=== PATIENT | male | born 1960 | race Caucasian/White ===

== ENCOUNTER → 2016-09-21 | Outpatient (REF) | payer BC | LOC: M SFHCPLAZ 13:45 | PROVIDERS: ATTEND Family Medicine | DX: E03.9 Hypothyroidism, unspecified (principal) ==

== ENCOUNTER → 2016-11-25 | Outpatient (REF) | payer OTHER | LOC: M SFHCPLAZ 11:35 | PROVIDERS: ATTEND Family Medicine | DX: E03.9 Hypothyroidism, unspecified (principal) ==

== ENCOUNTER → 2017-02-26 | Outpatient (REF) | payer OTHER ==
[2017-02-26 13:39] LABS: FREE T4 1.02 NG/DL (0.76-1.46)
[2017-02-26 18:02] LABS: THYROID PEROXIDASE ANTIBODY 1286.3 U/ML (<60.0)
== END ==
LOC: M SFHCPLAZ 09:38
PROVIDERS: ATTEND Family Medicine
DX: E03.9 Hypothyroidism, unspecified (principal)

== ENCOUNTER → 2017-06-29 | Outpatient (REF) | payer OTHER ==
[2017-06-29 13:04] LABS: FREE T4 1.11 NG/DL (0.76-1.46); THYROID STIMULATING HORMONE 0.266 uIU/ML (0.358-3.740)
[2017-07-01 03:56] LABS: CHOLESTEROL LEVEL 171 MG/DL (<200); CHOLESTEROL RISK RATIO 3.638 (<5); HDL CHOLESTEROL 47 MG/DL (>40); LDL CHOLESTEROL 99.2 MG/DL (<100); NON-HDL-C 124 MG/DL; TRIGLYCERIDES LEVEL 124 MG/DL (<150)
== END ==
LOC: M SFHCPLAZ 10:05
DX: E03.9 Hypothyroidism, unspecified (principal)

== ENCOUNTER 2018-05-23 12:56 | Emergency (ER) | payer SELFPAY, OTHER | END 2018-05-23 14:53 | disposition left against medical advice (07) | LOC: M ED 12:56 | DX: Z53.29 Procedure and treatment not carried out because of patient's decision for other reasons (principal) ==

== ENCOUNTER → 2018-06-03 | Outpatient (REF) | payer BC ==
[2018-06-03 12:07] LABS: BASO % 0.5 % (0.0-1.0); EOS # 0.2 10^3/uL (0.0-0.50); EOS % 2.4 % (0.0-3.0); HEMATOCRIT 44.1 % (42.0-52.0); HEMOGLOBIN 15.3 g/dl (13.5-17.5); IMMATURE GRANULOCYTE % 0.8 % (0-3.0); LYMPH # 2.3 10^3/uL (1.5-4.5); LYMPH % 28.4 % (24.0-44.0); MEAN CORPUSCULAR HEMOGLOBIN 32.4 pg (27.0-33.0); MEAN CORPUSCULAR HGB CONC 34.7 g/dl (32.0-36.5); MEAN CORPUSCULAR VOLUME 93.4 fl (80.0-96.0); MONO # 0.6 10^3/uL (0.0-0.8); MONO % 7.5 % (0.0-5.0); NEUTROPHILS # 4.8 10^3/uL (1.8-7.7); NEUTROPHILS % 60.4 % (36.0-66.0); PLATELET COUNT, AUTOMATED 267 10^3/uL (150-450); RED BLOOD COUNT 4.72 10^6/uL (4.30-6.10); RED CELL DISTRIBUTION WIDTH 11.7 % (11.5-14.5)
[2018-06-03 12:49] LABS: ALBUMIN 4.6 GM/DL (3.2-5.2); ALBUMIN/GLOBULIN RATIO 1.48 (1.00-1.93); ALKALINE PHOSPHATASE 72 U/L (45-117); ALT/SGPT 25 U/L (12-78); ANION GAP 6 MEQ/L (8-16); AST/SGOT 16 U/L (7-37); BILIRUBIN,DIRECT 0.2 MG/DL (0.0-0.2); BILIRUBIN,TOTAL 0.7 MG/DL (0.2-1.0); BLOOD UREA NITROGEN 19 MG/DL (7-18); CALCIUM LEVEL 9.5 MG/DL (8.5-10.1); CARBON DIOXIDE LEVEL 30 MEQ/L (21-32); CHLORIDE LEVEL 100 MEQ/L (98-107); CHOLESTEROL LEVEL 173 MG/DL (<200); CREATININE FOR GFR 1.02 MG/DL (0.70-1.30); GLOMERULAR FILTRATION RATE > 60.0 (>56); GLUCOSE, FASTING 96 MG/DL (70-100); HDL CHOLESTEROL 49 MG/DL (>40); LDL CHOLESTEROL 103 MG/DL (<100); NON-HDL-C 124 MG/DL; POTASSIUM SERUM 4.4 MEQ/L (3.5-5.1); SODIUM LEVEL 136 MEQ/L (136-145); TOTAL 25(OH) VITAMIN D 28.1 NG/ML (30.0-100.0); TOTAL PROTEIN 7.7 GM/DL (6.4-8.2); TRIGLYCERIDES LEVEL 106 MG/DL (<150)
[2018-06-03 13:39] LABS: CREATININE, URINE 54.8 MG/DL; MALB URINE SIEMENS 22.7 MG/L; MAU/CREAT RATIO 41.4 MCG/MG (0.0-30.0)
== END ==
LOC: M SFHCPLAZ 08:26
DX: R10.32 Left lower quadrant pain (principal); E78.2 Mixed hyperlipidemia; E03.9 Hypothyroidism, unspecified; Z51.81 Encounter for therapeutic drug level monitoring; I10 Essential (primary) hypertension; E55.9 Vitamin D deficiency, unspecified
CPT/HCPCS: 82248

== ENCOUNTER → 2018-07-28 | Outpatient (CLI) | payer BC ==
[~2018-07-28] MED LIST: ENAL10TA2; LEVO150T7
[2018-07-28 10:23] LABS: FREE T4 0.84 NG/DL (0.76-1.46); THYROID STIMULATING HORMONE 0.808 uIU/ML (0.358-3.740)
== END ==
LOC: M LAB 08:40
PROVIDERS: ATTEND Physician Assistant
DX: E03.9 Hypothyroidism, unspecified (principal)

== ENCOUNTER → 2019-02-01 | Outpatient (REF) | payer BC | LOC: M SFHCPLAZ 10:14 | PROVIDERS: ATTEND Family Medicine | DX: E83.42 Hypomagnesemia (principal); I10 Essential (primary) hypertension; E03.9 Hypothyroidism, unspecified ==

== ENCOUNTER → 2019-02-23 | Outpatient (CLI) | payer BC ==
[2019-02-23 11:21] LABS: BLOOD UREA NITROGEN 22 MG/DL (7-18); CALCIUM LEVEL 9.7 MG/DL (8.5-10.1); CARBON DIOXIDE LEVEL 30 MEQ/L (21-32); CHLORIDE LEVEL 106 MEQ/L (98-107); CREATININE FOR GFR 1.01 MG/DL (0.70-1.30); FREE T4 1.02 NG/DL (0.76-1.46); GLOMERULAR FILTRATION RATE > 60.0 (>56); GLUCOSE, FASTING 91 MG/DL (70-100); MAGNESIUM LEVEL 2.3 MG/DL (1.8-2.4); POTASSIUM SERUM 4.9 MEQ/L (3.5-5.1); SODIUM LEVEL 142 MEQ/L (136-145); THYROID STIMULATING HORMONE 0.181 uIU/ML (0.358-3.740)
== END ==
LOC: M LAB 09:54
PROVIDERS: ATTEND Family Medicine
DX: E03.9 Hypothyroidism, unspecified (principal)

== ENCOUNTER → 2019-07-03 | Outpatient (CLI) | payer BC ==
[2019-07-03 16:39] LABS: FREE T4 1.03 NG/DL (0.76-1.46); THYROID STIMULATING HORMONE 0.169 uIU/ML (0.358-3.740)
== END ==
LOC: M LAB 15:27
PROVIDERS: ATTEND Family Medicine
DX: E03.9 Hypothyroidism, unspecified (principal)

== ENCOUNTER → 2020-02-10 | Outpatient (CLI) | payer BC ==
[~2020-02-10] MED LIST changes: +ENAL-36; -ENAL10TA2
[2020-02-10 12:16] LABS: BASO # 0.1 10^3/uL (0.0-0.2); BASO % 0.9 % (0.0-1.0); EOS # 0.3 10^3/uL (0.0-0.5); EOS % 4.6 % (0.0-3.0); HEMATOCRIT 45.2 % (42.0-52.0); HEMOGLOBIN 15.7 g/dl (13.5-17.5); LYMPH # 1.6 10^3/uL (1.5-5.0); LYMPH % 27.5 % (24.0-44.0); MEAN CORPUSCULAR HEMOGLOBIN 33.3 pg (27.0-33.0); MEAN CORPUSCULAR HGB CONC 34.7 g/dl (32.0-36.5); MEAN CORPUSCULAR VOLUME 95.8 fl (80.0-96.0); MONO # 0.5 10^3/uL (0.0-0.8); MONO % 9.1 % (0.0-5.0); NEUTROPHILS # 3.3 10^3/uL (1.5-8.5); NEUTROPHILS % 57.5 % (36.0-66.0); PLATELET COUNT, AUTOMATED 231 10^3/uL (150-450); RED BLOOD COUNT 4.72 10^6/uL (4.30-6.10); WHITE BLOOD COUNT 5.7 10^3/uL (4.0-10.0)
[2020-02-12 04:12] LABS: ALBUMIN 4.2 GM/DL (3.2-5.2); ALT/SGPT 27 U/L (12-78); BILIRUBIN,TOTAL 0.4 MG/DL (0.2-1.0); BLOOD UREA NITROGEN 20 MG/DL (7-18); CALCIUM LEVEL 9.5 MG/DL (8.5-10.1); CARBON DIOXIDE LEVEL 31 MEQ/L (21-32); CHLORIDE LEVEL 105 MEQ/L (98-107); CHOLESTEROL LEVEL 191 MG/DL (<200); CREATININE FOR GFR 0.97 MG/DL (0.70-1.30); FREE T4 0.89 NG/DL (0.76-1.46); GLOMERULAR FILTRATION RATE > 60.0 (>56); GLUCOSE, FASTING 102 MG/DL (70-100); HDL CHOLESTEROL 57 MG/DL (>40); LDL CHOLESTEROL 117 MG/DL (<100); NON-HDL-C 134 MG/DL; POTASSIUM SERUM 4.5 MEQ/L (3.5-5.1); SODIUM LEVEL 138 MEQ/L (136-145); THYROID STIMULATING HORMONE 0.221 uIU/ML (0.358-3.740); TOTAL PROTEIN 7.6 GM/DL (6.4-8.2); TRIGLYCERIDES LEVEL 87 MG/DL (<150)
== END ==
LOC: M LAB 10:50
PROVIDERS: ATTEND Nurse Practitioner Family
DX: E03.9 Hypothyroidism, unspecified (principal); J30.9 Allergic rhinitis, unspecified; Z12.5 Encounter for screening for malignant neoplasm of prostate
CPT/HCPCS: 80053; 80061; 84439; 84443; 85025; G0103

== ENCOUNTER → 2020-12-06 | Outpatient (REF) | payer BC ==
[2020-12-06 18:54] LABS: BASO # 0.1 10^3/uL (0.0-0.2); BASO % 0.9 % (0.0-1.0); EOS # 0.2 10^3/uL (0.0-0.5); EOS % 2.8 % (0.0-3.0); HEMATOCRIT 44.4 % (42.0-52.0); HEMOGLOBIN 15.4 g/dl (13.5-17.5); LYMPH # 1.9 10^3/uL (1.5-5.0); LYMPH % 29.9 % (24.0-44.0); MEAN CORPUSCULAR HEMOGLOBIN 32.8 pg (27.0-33.0); MEAN CORPUSCULAR HGB CONC 34.7 g/dl (32.0-36.5); MEAN CORPUSCULAR VOLUME 94.7 fl (80.0-96.0); MONO # 0.7 10^3/uL (0.0-0.8); MONO % 10.3 % (2.0-8.0); NEUTROPHILS # 3.6 10^3/uL (1.5-8.5); NEUTROPHILS % 55.8 % (36.0-66.0); PLATELET COUNT, AUTOMATED 248 10^3/uL (150-450); RED BLOOD COUNT 4.69 10^6/uL (4.30-6.10); WHITE BLOOD COUNT 6.4 10^3/uL (4.0-10.0)
[2020-12-06 19:13] LABS: HEMOGLOBIN A1c 5.2 %
[2020-12-06 19:34] LABS: ALBUMIN 4.2 GM/DL (3.2-5.2); ALT/SGPT 27 U/L (12-78); BILIRUBIN,TOTAL 0.5 MG/DL (0.2-1.0); BLOOD UREA NITROGEN 20 MG/DL (7-18); CALCIUM LEVEL 9.8 MG/DL (8.5-10.1); CARBON DIOXIDE LEVEL 30 MEQ/L (21-32); CHLORIDE LEVEL 105 MEQ/L (98-107); CHOLESTEROL LEVEL 188 MG/DL (<200); CHOLESTEROL RISK RATIO 4.272 (<5); CREATININE FOR GFR 0.93 MG/DL (0.70-1.30); FREE T4 0.97 NG/DL (0.76-1.46); GLOMERULAR FILTRATION RATE > 60.0 (>56); GLUCOSE, FASTING 70 MG/DL (70-100); HDL CHOLESTEROL 44 MG/DL (>40); LDL CHOLESTEROL 110 MG/DL (<100); NON-HDL-C 144 MG/DL; POTASSIUM SERUM 5.1 MEQ/L (3.5-5.1); SODIUM LEVEL 138 MEQ/L (136-145); THYROID STIMULATING HORMONE 0.722 uIU/ML (0.358-3.740); TOTAL PROTEIN 7.5 GM/DL (6.4-8.2); TRIGLYCERIDES LEVEL 172 MG/DL (<150)
== END ==
LOC: M SFHCPLAZ 15:04
PROVIDERS: ATTEND Nurse Practitioner Family
DX: J30.9 Allergic rhinitis, unspecified (principal); E03.9 Hypothyroidism, unspecified; Z12.5 Encounter for screening for malignant neoplasm of prostate; Z13.1 Encounter for screening for diabetes mellitus
CPT/HCPCS: 36415; 80053; 80061; 83036; 84439; 84443; 85025; G0103

== ENCOUNTER → 2021-05-17 | Outpatient (CLI) | payer BC ==
[~2021-05-17] MED LIST changes: -ENAL-36; +ENAL-36 PO; +FEXO-13 PO; +LEVO137T2 PO; +MONT10TA10 PO
== END ==
LOC: M LABSMTC 10:35
PROVIDERS: ATTEND Anesthesiology
DX: Z01.812 Encounter for preprocedural laboratory examination (principal); Z11.52 Encounter for screening for COVID-19

== ENCOUNTER 2021-05-22 08:48 | Day surgery (SDC) | payer BC ==
[~2021-05-22] VITALS: Ht 182.9 cm; Wt 83.0 kg
[~2021-05-22 08:48] MED LIST changes: +NS 1,000 ML IV ONE
--- OUTSIDE RECORDS SUMMARY | 2021-05-22 08:53 | CCD ---
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 Active confirmed 23 4267889 Problem Hypomagnesemia E83.42 Active confirmed 59811 5004 Problem Lumbago with sciatica, right side M54.41 Active confirmed 945060239 Problem Reactive airway disease, unspecified asthma hubert rity, uncomplicated J45.909 Active confirmed 311956659112 Problem Acquired hypothyroidism E03.9 Active confirmed 037172489 Problem Essential hypertension I10 Active confirmed 63480562 Problem Lumbago with sciatica, left side M54.42 Active confirmed 535633630 Problem Allergic rhinitis J30.9 Active confirmed 61 130577 Problem Hypothyroidism (acquired) E03.9 Active confirmed 136974560 Problem Mixed hyperlipidemia E78.2 Active confirmed 959495667 Problem HTN, goal below 130/80 I10 Active confirmed 26234980 Problem Chronic allergic rhinitis J30.9 Active confirmed 38432534 Problem Vitamin D deficiency E55.9 Active confirmed 26484968 ALLERGIES No Known Allergies ENCOUNTERS from 1960 to 2021-03-14 Encounter Location Date Provider Diagnosis [address] [phone] [place] [address] Feb, Marialuisa Pappas IMMUNIZATIONS Vaccine Route Administration Date Status TDAP 0.5mL (Boostrix) Unknown Jul 08, 2016 Administer ed Influenza 6mo & up Fluzone Unknown Apr 06, 2016 Other s SOCIAL HISTORY Tobacco Use: Social History Observation Description Date Details (start date - stop date) Never Smoker Sex Assigned At : Social History Observation Description Sex Assigned At Unknown Education: Question Answer Notes Level of Education: High School Audit Question Answer Notes Total Score: 9 Interpretation: Simple Advice Language: Question Answer Notes Languages spoken: Malay Yazidism: Question Answer Notes Yazidism 33 None Sexual Hx: Question Answer Notes Had sex in the last 12 months (vaginal, oral, or anal)? Yes with Women only Drug and Alcohol Question Answer Notes Total Score: 2 Interpretation: Low level Alcohol Screening: Question Answer Notes Did you have a drink containing alcohol in the past year? Ye s Points 4 Interpretation Positive How often did you have six or more drinks on one occas ion in the past year? Never (0 points) How many drinks did you have on a typica l day when you were drinking in the past year? 1 or 2 (0 points) How often did you have a drink containing alcohol in t he past year? Four or more times a week (4 points) BMI Care Goal Follow-Up Question Answer Notes Above Normal BMI Follow-Up Lifestyle education regarding t Tobacco Use: Question Answer Notes Are you a: never smoker never smoker REASON FOR REFERRAL No Information VITAL SIGNS No information MEDICATIONS Medication SIG (Take, Route, Frequency, Duration) Notes Start Da te End Date Status Ipratropium [place] 0.03 % 2 sprays in each nostril Na betty Twice a day a needed for 30 day(s) Active Vitamin D 125 MCG (5000 UT) 1 capsule Orally Once a day Active Enalapril Maleate 10 MG 1 tablet Orally Once a day for 90 Active Zinc 50 MG 1 tablet Orally Once a day for 30 day(s) Active Singulair 10 MG 1 tablet Orally Once a day for 30 day(s) 1 Feb, Active Levothyroxine Sodium 137 MCG 1 tablet on an empty stom ach in the morning Orally Once a day for 30 Days Active Selenium 200 MCG 1 tablet Orally Once a day for 30 day(s) Active Fexofenadine HCl 180 MG 1 tablet Orally Once a day for 30 day(s) Nov, Active PROCEDURES No Information RESULTS No Results REASON FOR VISIT right ear infection? MEDICAL (GENERAL) HISTORY Type Description Date Medical History Hypothyroidism Medical History Lipid panel performed 06/02, ASCVD risk is 5.3%. A statin is not indicated at this time. F/u lipid in 2016 Medical History Colonoscopy 08/2009 nL f/u in 2019 Medical History Hypertension Medical History Environmental Allergies Medical History Alcohol abuse Medical History Second hand smoke exposure Medical History Marijuana use Surgical History hernia repair Surgical History appendectomy Surgical History Hemorrhoidectomy Surgical History Rubber Band LIgation 09/2009 Surgical History Colonoscopy 08/2009 Hospitalization History Hospitalization for surgies only Goals Section No Information Health Concerns No Information MEDICAL EQUIPMENT No Information MENTAL STATUS No Information FUNCTIONAL STATUS No Information ASSESSMENTS No Information PLAN OF TREATMENT Medication Medication Name Sig Start Date Stop Date Ipratropium [place] 0.03 % 2 sprays in each nostril Na betty Twice a day a needed for 30 day(s) Levothyroxine Sodium 137 MCG 1 tablet on an empty stom ach in the morning Orally Once a day for 30 Days Enalapril Maleate 10 MG 1 tablet Orally Once a day for 90 Singulair 10 MG 1 tablet Orally Once a day for 30 day(s) Feb, Fexofenadine HCl 180 MG 1 tablet Orally Once a day for 30 day(s) Nov, Next Appt Details Provider Name:Marialuisaeli Pappas, 03-17 01:30:00 PM, [address] [place] [address] , [place], [address], Provider Name:Marialuisaeli Pappas, 2020-06 02:30:00 PM, [address] [place] [address] , [place], [address], Insurance Providers Payer Name Payer Address Payer Phone Insured Name Patient Relati onship to Insured Coverage Start Date Coverage End Date BCBS OF [facility] [phone] [facility] [id number] SINDHU SPARKS
--- OUTSIDE RECORDS SUMMARY | 2021-05-22 08:53 | CCD ---
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 Active confirmed 23 2758112 Problem Hypomagnesemia E83.42 Active confirmed 33409 5004 Problem Lumbago with sciatica, right side M54.41 Active confirmed 378522299 Problem Reactive airway disease, unspecified asthma hubert rity, uncomplicated J45.909 Active confirmed 491644339825 Problem Acquired hypothyroidism E03.9 Active confirmed 936481606 Problem Essential hypertension I10 Active confirmed 16215259 Problem Lumbago with sciatica, left side M54.42 Active confirmed 725799585 Problem Allergic rhinitis J30.9 Active confirmed 61 263180 Problem Hypothyroidism (acquired) E03.9 Active confirmed 994715194 Problem Mixed hyperlipidemia E78.2 Active confirmed 178481503 Problem HTN, goal below 130/80 I10 Active confirmed 85756644 Problem Chronic allergic rhinitis J30.9 Active confirmed 32986822 Problem Vitamin D deficiency E55.9 Active confirmed 68809460 ALLERGIES No Known Allergies ENCOUNTERS from 1960 to 2021-03-19 Encounter Location Date Provider Diagnosis [address] [phone] [place] [address] Feb, Marialuisa Pappas Allergic rhinitis J30.9 and Acute effusion of right ear H65.191 IMMUNIZATIONS Vaccine Route Administration Date Status TDAP [...] Advice Language: Question Answer Notes Languages spoken: Honduran Cheondoism: Question Answer Notes Cheondoism 33 None Sexual Hx: Question Answer Notes [...] REASON FOR REFERRAL No Information VITAL SIGNS Weight 184.12 lbs Feb, Weight-kg 83.52 kg Feb, Height 72 in Feb, BMI 24.97 kg/m2 Feb, Heart Rate 82 /min Feb, Respiratory Rate 18 /min Feb, Temperature 97.8 degrees Fahrenheit Feb, Oximetry 98% Feb, Blood pressure systolic 130 mm Hg Feb, Blood pressure diastolic 70 mm Hg Feb, MEDICATIONS Medication SIG (Take, Route, Frequency, Duration) Notes Start Da te End Date Status Enalapril Maleate 10 MG 1 tablet Orally Once a day for 90 Active Zinc 50 MG 1 tablet Orally Once a day for 30 day(s) Active Amoxicillin-Pot Clavulanate 875-125 MG 1 tablet Orally every 12 hrs for 10 day(s) Feb, Active Singulair 10 MG 1 tablet Orally Once a day for 30 day(s) 1 7 Feb, 2021 Active Vitamin D 125 MCG (5000 UT) 1 capsule Orally Once a day Active Levothyroxine Sodium 137 MCG 1 tablet on an empty stom ach in the morning Orally Once a day for 30 Days Active Ipratropium [place] 0.03 % 2 sprays in each nostril Na betty Twice a day a needed for 30 day(s) Active Fexofenadine HCl 180 MG 1 tablet Orally Once a day for 30 day(s) Nov, Active Selenium 200 MCG 1 tablet Orally Once a day for 30 day(s) Active PROCEDURES No Information RESULTS No Results REASON FOR VISIT ear feels tender MEDICAL (GENERAL) HISTORY Type Description Date Medical [...] No Information FUNCTIONAL STATUS No Information ASSESSMENTS Encounter Date Diagnosis Assessment Notes Treatment Notes Treatm ent Clinical Notes Feb, Allergic rhinitis (ICD-10 - J30.9) chronic ongoing given not controlled with steroid/antihistame continue Anticholenergic Feb, Acute effusion of right ear (ICD-10 - H65.191) Empiric coverage with abx for 10days PLAN OF TREATMENT Medication Medication Name Sig Start Date Stop Date Amoxicillin-Pot Clavulanate 875-125 MG 1 tablet Orally every 12 hrs for 10 day(s) Feb, Ipratropium [place] 0.03 % 2 sprays in each nostril Na betty Twice a day a needed for 30 day(s) Treatment Notes Assessment Notes Clinical Notes Allergic rhinitis chronic ongoing giv en not controlled with steroid/antihistamecontinue Anticholenergic Acute effusion of right ear Empiric cove rage with abx for 10days Next Appt Details Reason: Provider Name:Marialuisa Pappas, 2020-- 02:30:00 PM, [address] [facility], , [place], [address], Insurance Providers Payer Name Payer Address Payer Phone Insured Name Patient Relati onship to Insured Coverage Start Date Coverage End Date [employer] OF [place] [employer] [phone] [place] [id number] SINDHU SPARKS self
--- OUTSIDE RECORDS SUMMARY | 2021-05-22 08:53 | CCD ---
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 Active confirmed 23 5218344 Problem Hypomagnesemia E83.42 Active confirmed 05006 5004 Problem Lumbago with sciatica, right side M54.41 Active confirmed 039850158 Problem Reactive airway disease, unspecified asthma hubert rity, uncomplicated J45.909 Active confirmed 846994460824 Problem Acquired hypothyroidism E03.9 Active confirmed 962535748 Problem Essential hypertension I10 Active confirmed 92622311 Problem Lumbago with sciatica, left side M54.42 Active confirmed 229960253 Problem Allergic rhinitis J30.9 Active confirmed 61 949697 Problem Hypothyroidism (acquired) E03.9 Active confirmed 363624091 Problem Mixed hyperlipidemia E78.2 Active confirmed 831161208 Problem HTN, goal below 130/80 I10 Active confirmed 63378202 Problem Chronic allergic rhinitis J30.9 Active confirmed 46500495 Problem Vitamin D deficiency E55.9 Active confirmed 96257749 ALLERGIES No Known Allergies ENCOUNTERS from 1960 to 2021-03-07 Encounter Location Date Provider Diagnosis [address] [phone] [place] [address] Feb, Marialuisa Pappas Hypothyroidism E03.9 and All ergic rhinitis J30.9 IMMUNIZATIONS Vaccine Route Administration Date Status TDAP [...] Advice Language: Question Answer Notes Languages spoken: French Rastafarian: Question Answer Notes Rastafarian 33 None Sexual Hx: Question Answer Notes [...] Start Da te End Date Status Ipratropium [place] 0.03 % 2 sprays in each nostril [...] Once a day for 30 day(s) Feb, Active Levothyroxine Sodium 137 MCG 1 tablet on an empty stom ach in the morning Orally Once a day for 30 Days Active Selenium 200 MCG 1 tablet Orally Once a day for 30 day(s) Active Fexofenadine HCl 180 MG 1 tablet Orally Once a day for 30 day(s) Nov, Active PROCEDURES No Information RESULTS No Results REASON FOR VISIT New Refill Request MEDICAL (GENERAL) HISTORY Type Description Date Medical [...] Treatment Notes Treatm ent Clinical Notes Feb, Hypothyroidism (ICD-10 - E03.9) Feb, Allergic rhinitis (ICD-10 - J30.9) PLAN OF TREATMENT Medication Medication Name Sig Start Date Stop Date Ipratropium [place] 0.03 % 2 sprays in each nostril [...] 30 day(s) Nov, Next Appt Details Provider Name:Marialuisa Guillaumeozzy, 2020- 02:30:00 PM, [address] [facility], , [place], [address], Insurance Providers Payer Name Payer Address Payer Phone Insured Name Patient Relati onship to Insured Coverage Start Date Coverage End Date BCBS OF [facility] [phone] [facility] [id number] SINDHU SPARKS
--- OUTSIDE RECORDS SUMMARY | 2021-05-22 08:53 | CCD ---
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 Active confirmed 23 1941470 Problem Hypomagnesemia E83.42 Active confirmed 58393 5004 Problem Lumbago with sciatica, right side M54.41 Active confirmed 206593492 Problem Reactive airway disease, unspecified asthma hubert rity, uncomplicated J45.909 Active confirmed 818192911162 Problem Acquired hypothyroidism E03.9 Active confirmed 762570741 Problem Essential hypertension I10 Active confirmed 41368613 Problem Lumbago with sciatica, left side M54.42 Active confirmed 723723580 Problem Allergic rhinitis J30.9 Active confirmed 61 218442 Problem Hypothyroidism (acquired) E03.9 Active confirmed 026814327 Problem Mixed hyperlipidemia E78.2 Active confirmed 311166695 Problem HTN, goal below 130/80 I10 Active confirmed 31495705 Problem Chronic allergic rhinitis J30.9 Active confirmed 78079215 Problem Vitamin D deficiency E55.9 Active confirmed 38611867 ALLERGIES No Known Allergies ENCOUNTERS from 1960 to 2021-03-07 Encounter Location Date Provider Diagnosis [address] [phone] [place] [address] 15 Feb, 2021 Marialuisa Pappas Hypothyroidism E03.9 and [place] ctive airway disease, unspecified asthma severity, uncomplicated J45.909 IMMUNIZATIONS Vaccine Route Administration Date Status TDAP [...] Advice Language: Question Answer Notes Languages spoken: Mohawk Gnosticism: Question Answer Notes Gnosticism 33 None Sexual Hx: Question Answer Notes [...] Start Da te End Date Status Ipratropium [place] 0.03 % 2 sprays in each nostril [...] 30 day(s) 1 7 Feb, 2021 Active Levothyroxine Sodium 137 MCG 1 tablet on an empty stom ach in the morning Orally Once a day for 30 Days Active Selenium 200 MCG 1 tablet Orally Once a day for 30 day(s) Active Fexofenadine HCl 180 MG 1 tablet Orally Once a day for 30 day(s) Nov, Active PROCEDURES No Information RESULTS No Results REASON FOR VISIT refill MEDICAL (GENERAL) HISTORY Type Description Date Medical [...] Notes Feb, Hypothyroidism (ICD-10 - E03.9) Feb, Reactive airway disease, uns pecified asthma severity, uncomplicated (ICD-10 - J45.909) PLAN OF TREATMENT Medication Medication Name Sig Start Date Stop Date Ipratropium [place] 0.03 % 2 sprays in each nostril [...] Next Appt Details Provider Name:Marialuisa Guillaumeozzy, 2020- 0 02:30:00 PM, [address] [facility], , [place], [address], Insurance Providers Payer Name Payer Address Payer Phone Insured Name Patient Relati onship to Insured Coverage Start Date Coverage End Date [employer] OF [place] [employer] [id number] [facility] [id number] SINDHU SPARKS
--- OUTSIDE RECORDS SUMMARY | 2021-05-22 08:53 | CCD ---
Author Author [facility] Organization [facility] Address Unknown Phone Unavailable Care Team Providers Care Patient Financial Specialist Name Role Phone Charlebois, A Dianna RPA C Unavailable Unavailable Charlebois, A Dianna RPA C Unavailable Unavailable Charlebois, A Dianna RPA C Unavailable Unavailable Charlebois, A Dianna RPA C Unavailable Unavailable Charlebois, A Dianna RPA C Unavailable Unavailable Charlebois, A Dianna RPA C Unavailable Unavailable Charlebois, A Dianna RPA C Unavailable Unavailable Charlebois, A Dianna RPA C Unavailable Unavailable Charlebois, A Dianna RPA C Unavailable Unavailable Charlebois, A Dianna RPA C Unavailable Unavailable Charlebois, A Dianna RPA C Unavailable Unavailable Charlebois, A Dianna RPA C Unavailable Unavailable Charlebois, A Dianna RPA C Unavailable Unavailable Charlebois, A Dianna RPA C Unavailable Unavailable Charlebois, A Dianna RPA C Unavailable Unavailable Charlebois, A Dianna RPA C Unavailable Unavailable Charlebois, A Dianna RPA C Unavailable Unavailable Charlebois, A Dianna RPA C Unavailable Unavailable Charlebois, A Dianna RPA C Unavailable Unavailable Charlebois, A Dianna RPA C Unavailable Unavailable Charlebois, A Dianna RPA C Unavailable Unavailable Charlebois, A Dianna RPA C Unavailable Unavailable Charlebois, A Dianna RPA C Unavailable Unavailable Charlebois, A Dianna RPA C Unavailable Unavailable Charlebois, A Dianna RPA C Unavailable Unavailable Charlebois, A Dianna RPA C Unavailable Unavailable Charlebois, A Dianna RPA C Unavailable Unavailable Charlebois, A Dianna RPA C Unavailable Unavailable Charlebois, A Dianna RPA C Unavailable Unavailable Charlebois, A Dianna RPA C Unavailable Unavailable Charlebois, A Dianna RPA C Unavailable Unavailable Charlebois, A Dianna RPA C Unavailable Unavailable Charlebois, A Dianna RPA C Unavailable Unavailable ZALOCHA, VANETTE DAY CARE HOME MOTHER Unavailable Unavailable ZALOCHA, VANETTE DAY CARE HOME MOTHER Unavailable Unavailable ZALOCHA, VANETTE DAY CARE HOME MOTHER Unavailable Unavailable ZALOCHA, VANETTE DAY CARE HOME MOTHER Unavailable Unavailable ZALOCHA, VANETTE DAY CARE HOME MOTHER Unavailable Unavailable ZALOCHA, VANETTE DAY CARE HOME MOTHER Unavailable Unavailable ZALOCHA, VANETTE DAY CARE HOME MOTHER Unavailable Unavailable ZALOCHA, VANETTE DAY CARE HOME MOTHER Unavailable Unavailable ZALOCHA, VANETTE DAY CARE HOME MOTHER Unavailable Unavailable ZALOCHA, VANETTE DAY CARE HOME MOTHER Unavailable Unavailable Re-disclosure Warning The records that you are about to access may contain information from federally-assisted alcohol or drug abuse programs. If such information is present, then the following federally mandated warning applies: This information has been disclosed to you from records protected by federal confidentiality rules (42 CFR part 2). The federal rules prohibit you from making any further disclosure of this information unless further disclosure is expressly permitted by the written consent of the person to whom it pertains or as otherwise permitted by 42 CFR part 2. A general authorization for the release of medical or other information is NOT sufficient for this purpose. The Federal rules restrict any use of the information to criminally investigate or prosecute any alcohol or drug abuse patient.The records that you are about to access may contain highly sensitive health information, the redisclosure of which is protected by Article 27-F of the [facility] Public Health law. If you continue you may have access to information: Regarding HIV / AIDS; Provided by facilities licensed or operated by the [facility] Office of Mental Health; or Provided by the [facility] Office for People With Developmental Disabilities. If such information is present, then the following [facility] mandated warning applies: This information has been disclosed to you from confidential records which are protected by state law. State law prohibits you from making any further disclosure of this information without the specific written consent of the person to whom it pertains, or as otherwise permitted by law. Any unauthorized further disclosure in violation of state law may result in a fine or residential sentence or both. A general authorization for the release of medical or other information is NOT sufficient authorization for further disc losure. Family History Family Member Name Family Member Gender Family Member Status Date o f Status Description Data Source(s) Unknown Male Problem [facility] ([facility]) Unknown Female Problem [facility] ([facility] Encounters Encounter Providers Location Date Indications Data Source(s ) Outpatient [address] [facility] [place] [address] 03/17/2021 12:00:00 AM EDT eCW1 ([facility]) Unknown [address] [facility] [place] [address] 03/13/2021 12:00:00 AM EDT eCW1 ([facility]) Unknown [address] [facility] [place] [address] 03/07/2021 12:00:00 AM EDT eCW1 ([facility]) Unknown [address] [facility] [place] [address] 03/05/2021 12:00:00 AM EDT eCW1 ([facility]) Outpatient Attender: Dianna Hernández/Ezio/Zak hargrove/Yuliana 02/06/2021 01:30:00 PM EDT [facility] ([facility] ROSENDA Hernandez) Unknown [address] [facility] [place] [address] 01/13/2021 12:00:00 AM EDT eCW1 ([facility]) [place] [address] [facility] [place] [address] 12/06/2020 12:00:00 AM EDT eCW1 ([facility]) [place] [address] [facility] [place] [address] 12/03/2020 12:00:00 AM EDT eCW1 ([facility]) Outpatient Attender: AUREA GRULLON NP 03:10:25 PM EDT - 09/08/2020 03:56:19 PM EDT [facility] ([facility]) [place] [address] [facility] [place] [address] 06/03/2020 12:00:00 AM EST eCW1 ([facility]) [place] [address] [facility] [place] [address] 03/29/2020 12:00:00 AM EDT eCW1 ([facility]) Immunizations Vaccine Date Status Description Data Source(s) COVID-19 VACCINE MOWGLI 09/29/2020 12:00:00 AM EDT completed [facility] Vaccine Series Complete: YESThis Data wa s Submitted to [facility]. COVID-19 VACCINE Pfizer 09/08/2020 12:00:00 AM EDT completed [facility] Vaccine Series Complete: NOThis Data was Submitted to [facility] [employer]. Medications Medication Brand Name Start Date Product Form Dose Route Admi nistrative Instructions Pharmacy Instructions Status Indications Reaction Description Data Source(s) Amoxicillin 875 MG / Clavulanate 125 MG Oral Tablet Amoxicillin-Pot Clavulanate 875-125 MG Amoxicillin-Pot Clavulanate 875-125 MG 03/17/2021 12:00:00 AM ED T 1.0 {tablet} active Amoxicillin-Pot Cla vulanate 875-125 MG eCW1 ([facility]) montelukast 10 MG Oral Tablet [Singulair] Singulair 10 MG Si ngulair 10 MG 03/07/2021 12:00:00 AM EDT 1.0 {tablet} active Singulair 10 MG eCW1 ([facility]) montelukast 10 MG Oral Tablet [Singulair] Singulair 10 MG Si ngulair 10 MG 03/07/2021 12:00:00 AM EDT 1.0 {tablet} active Singulair 10 MG eCW1 ([facility]) montelukast 10 MG Oral Tablet [Singulair] Singulair 10 MG Si ngulair 10 MG 03/07/2021 12:00:00 AM EDT 1.0 {tablet} active Singulair 10 MG eCW1 ([facility]) montelukast 10 MG Oral Tablet [Singulair] Singulair 10 MG Si ngulair 10 MG 03/07/2021 12:00:00 AM EDT 1.0 {tablet} active Singulair 10 MG eCW1 ([facility]) Fexofenadine hydrochloride 180 MG Oral Tablet Fexofena dine HCl 180 MG Fexofenadine HCl 180 MG 12/06/2020 12:00:00 AM EDT 1.0 {tablet} active Fexofenadine HCl 180 MG eCW1 ([facility]) Fexofenadine hydrochloride 180 MG Oral Tablet Fexofena dine HCl 180 MG Fexofenadine HCl 180 MG 12/06/2020 12:00:00 AM EDT 1.0 {tablet} active Fexofenadine HCl 180 MG eCW1 ([facility]) Fexofenadine hydrochloride 180 MG Oral Tablet Fexofena dine HCl 180 MG Fexofenadine HCl 180 MG 12/06/2020 12:00:00 AM EDT 1.0 {tablet} active Fexofenadine HCl 180 MG eCW1 ([facility]) Fexofenadine hydrochloride 180 MG Oral Tablet Fexofena dine HCl 180 MG Fexofenadine HCl 180 MG 12/06/2020 12:00:00 AM EDT 1.0 {tablet} active Fexofenadine HCl 180 MG eCW1 ([facility]) Fexofenadine hydrochloride 180 MG Oral Tablet Fexofena dine HCl 180 MG Fexofenadine HCl 180 MG 12/06/2020 12:00:00 AM EDT 1.0 {tablet} active Fexofenadine HCl 180 MG eCW1 ([facility]) Fexofenadine hydrochloride 180 MG Oral Tablet Fexofena dine HCl 180 MG Fexofenadine HCl 180 MG 12/06/2020 12:00:00 AM EDT 1.0 {tablet} active Fexofenadine HCl 180 MG eCW1 ([facility]) Insurance Providers Payer name Policy type / Coverage type Policy ID Covered constitution party ID Covered constitution party's relationship to lee Policy Lee Plan Information [facility] (pr) Medigap Part B [id number] Self [id number] MVP (pr) Commercial [id number] Self [id number] MVP Health Maintenance Organization (HMO) [id number] Se lf MVP Medicaid Commercial [id number] Self [id number] MVP I [id number] Self [id number] [employer] Blue [employer] - [place] Blue Cross/Blue Shie ld [id number] Self [id number] [employer] - [place] Blue Cross/Blue Shie ld [id number] Self [id number] ANSI-Commercial [id number] ANSI-Commercial [id number] ANSI-Commercial [id number] ANSI-Commercial [id number] ANSI-Not a Secondary Insurance [id number] ANSI-Not a Secondary Insurance [id number] ANSI-Commercial [id number] ANSI-Commercial [id number] ANSI-Not a Secondary Insurance [id number] ANSI-Not a Secondary Insurance [id number] ANSI-Not a Secondary Insurance [id number] ANSI-Not a Secondary Insurance [id number] ANSI-Commercial [id number] ANSI-Commercial [id number] ANSI-Not a Secondary Insurance [id number] ANSI-Not a Secondary Insurance [id number] ANSI-Commercial [id number] ANSI-Commercial [id number] ANSI-Commercial [id number]-[id number] ANSI-Not a Secondary Insurance [id number] ANSI-Commercial [id number] ANSI-Not a Secondary Insurance [id number] SELF PAY ONLY [id number] SP [id number] ANSI-Commercial [id number]-[id number]-[id number] [id number]-[id number]-[id number] ANSI-Commercial [id number]-[id number] [id number]-[id number] ANSI-Not a Secondary Insurance [id number] ANSI-Not a Secondary Insurance [id number]-[id number] ANSI-Commercial [id number]-237n-[id number]-[id number] ANSI-Not a Secondary Insurance [id number] [id number]-[id number] ANSI-Commercial [id number]-[id number] ANSI-Not a Secondary Insurance [id number] BRADEN [id number] ANSI-Commercial [id number]-[id number]-[id number] ANSI-Not a Secondary Insurance [id number] [id number]-27qk-[id number] ANSI-Not a Secondary Insurance [id number] ANSI-Commercial [id number] [id number] ANSI-Commercial [id number]-[id number] [id number]-[id number]-78z3-99mi-[id number] ANSI-Commercial [id number]-[id number]-[id number] ANSI-Not a Secondary Insurance [id number] ANSI-Not a Secondary Insurance [id number] [id number]-[id number] ANSI-Commercial [id number] ANSI-Commercial [id number] ANSI-Not a Secondary Insurance [id number] ANSI-Not a Secondary Insurance [id number] [id number] [facility] [id number] SP [id number] MEDICAID [id number] SP [id number] [facility] O [id number] S [id number] [place] 302/307 [id number] SP [id number] [place] 302/307 [id number] SP [id number] [employer] BCBS B [id number] S [id number] [id number] [place] [place] [id number] Self BCBS [place] [facility] 303/803 [id number] SP [id number] [place] P[place] 302/307 [id number] SP [id number] [facility] PHY [id number] SP [id number] [place] 302/307 [id number] SP [id number] [place] 306/806 [id number] SP [id number] [place] 306/806 [id number] SP [id number] [place] PPO 302/307 [id number] SP [id number] ANSI-Not a Secondary Insurance [id number] ANSI-Not a Secondary Insurance [id number] Problems, Conditions, and Diagnoses No Information Surgeries/Procedures Procedure Description Date Indications Data Source(s) OFFICE OUTPATIENT VISIT 25 MINUTES 02/06/2021 12:00:00 AM [facility] Results ID Date Data Source [id number] 05/17/2021 10:45:00 AM EST [facility] Name Value Range Interpretation Code Description Data Archana rce(s) Supporting Document(s) SARS-CoV-2 (COVID-19) RNA [Presence] in Respiratory specimen by AGATHA with probe detection Not Detected [facility] This lab was ordered by [facility] and reported by [employer]. ID Date Data Source [id number] 05/07/2021 12:00:00 AM EST [facility] Name Value Range Interpretation Code Description Data Archana rce(s) Supporting Document(s) SARS-CoV-2 (COVID-19) RNA [Presence] in Respiratory specimen by AGATHA with probe detection Not Detected [facility] This lab was ordered by [facility] and reported by [employer] ID Date Data Source [id number] 04/23/2021 12:00:00 PM EDT [facility] Name Value Range Interpretation Code Description Data Archana rce(s) Supporting Document(s) SARS-CoV-2 (COVID-19) RNA [Presence] in Respiratory specimen by AGATHA with probe detection Not Detected [facility] This lab was ordered by [facility] and reported by [employer] ID Date Data Source [id number] 04/09/2021 12:00:00 AM EDT [facility] Name Value Range Interpretation Code Description Data Archana rce(s) Supporting Document(s) SARS-CoV-2 (COVID-19) RNA [Presence] in Respiratory specimen by AGATHA with probe detection Not Detected [facility] This lab was ordered by [facility] and reported by [employer] ID Date Data Source [id number] 03/26/2021 12:15:00 PM EDT [facility] Name Value Range Interpretation Code Description Data Archana rce(s) Supporting Document(s) SARS-CoV-2 (COVID-19) RNA [Presence] in Respiratory specimen by AGATHA with probe detection Not Detected [facility] This lab was ordered by [facility] and reported by [employer] ID Date Data Source [id number] 03/12/2021 12:30:00 PM EDT [facility] Name Value Range Interpretation Code Description Data Archana rce(s) Supporting Document(s) SARS-CoV-2 (COVID-19) RNA [Presence] in Respiratory specimen by AGATHA with probe detection Not Detected [facility] This lab was ordered by [facility] and reported by [employer] ID Date Data Source [id number] 03/05/2021 12:00:00 AM EDT [facility] Name Value Range Interpretation Code Description Data Archana rce(s) Supporting Document(s) SARS-CoV-2 (COVID-19) RNA [Presence] in Respiratory specimen by AGATHA with probe detection Not Detected [facility] This lab was ordered by [facility] and reported by [employer]. ID Date Data Source [id number] 02/19/2021 12:00:00 AM EDT [facility] Name Value Range Interpretation Code Description Data Archana rce(s) Supporting Document(s) SARS-CoV-2 (COVID-19) RNA [Presence] in Respiratory specimen by AGATHA with probe detection Not Detected [facility] This lab was ordered by [facility] and reported by [employer]. ID Date Data Source [id number] 02/07/2021 10:25:00 PM EDT [facility] Name Value Range Interpretation Code Description Data Archana rce(s) Supporting Document(s) [id number] NOT DETECTED [facility] A Not Detected result means that SARS-Co V-2 RNA was notpresent in the specimen above the limit of detection.A Not Detected result does not rule out the possibilityof COVID-19 and should not be used as the sole basis fortreatment or patient management decisions. If COVID-19is still suspected, based on exposure history togetherwith other clinical findings, re-testing should beconsidered in the context of clinical observations andepidemiological data for patient management decisions.Test Method: Nucleic Acid Amplification Test includingreverse powerhouse mechanic apprentice polymerase chain reaction (RT-PCRand transcri ption mediated amplification (TMA). The testmethod meets the [place] Centers for Disease Control andprevention (CDC) pre departure and arrival requirementfor viral test for COVID-19 dated July 18, 2020.Testing requirements for traveling may change with time.The patient is responsible for determining the testrequirements for each nation while they are traveling.This test has been authorized by the FDA under anEmergency Use Authorization (EUA) for use by authorizedlaboratories.Please review the "Fact Sheets" and FDA authorizedlabeling available for health care providers andpatients using the [facility] websites:https://www.Science.DOZ/home/Covid-19/HCP/NAAT/fact-efcgt4xjos s://www.Science.DOZ/home/Covid-19/Patients/NAAT/fact-aynjh4Guh to the current public health emergency, [facility] is accepting samples from appropriateclinical sources collected using wide variety ofswabs and transport media for COVID-19. Not detectedtest results derived from specimens received in non-commercially manufactured viral collection kits or thosenot yet authorized by FDA for COVID-19 testing should becautiously evaluated and take extra precautions such assuch as additional clinical monitoring, including collectionof an additional specimen.Additional information about COVID-19 can be foundat the [employer] website:www.[facility].com/Covid19. ID Date Data Source [id number] 02/06/2021 11:05:00 AM EDT [facility] Name Value Range Interpretation Code Description Data Archana rce(s) Supporting Document(s) SARS-COV-2 RNA RESP QL AGATHA+PROBE Not detected [facility] and reported by [employer]. ID Date Data Source [id number] 01/16/2021 12:08:00 PM EDT [facility] Name Value Range Interpretation Code Description Data Archana rce(s) Supporting Document(s) [id number] NOT DETECTED [facility] A Not Detected (negative) test result fo r this testmeans that SARS-CoV-2 RNA was not present in the specimenabove the limit of detection. A negative result does notrule out the possibility of COVID-19 and should not beused as the sole basis for treatment or patient managementdecisions. If COVID-19 is still suspected, based onexposure history together with other clinical findings,re-testing should be considered in consultation with[facility] health authorities. Laboratory test results shouldalways be considered in the context of clinicalobservations and epidemiological data in making a finaldiagnosis and patient management decisions.This patient specimen was tested using an FDA EUA poolingmethod.Patient specimens with low viral loads may not be detectedin sample pools due to the decreased sensitivity ofpooled testing.Please review the "Fact Sheets" and FDA authorizedlabeling available for health care providers andpatients using the following websites:https://www.Science.DOZ/home/Co vid-19/HCP/NAAT/fact-lvjvx4iobhf://www.Science.DOZ/home/Covid-19/Patien ts/NAAT/fact-jmbdq5Sjdv test has been authorized by the FDA under anEmergency Use Authorization (EUA) for use by authorizedlaboratories.Due to the current public health emergency, [facility] is receiving a high volume of samples froma wide variety of swabs and media for COVID-19 testing.In order to serve patients during this public healthcrisis, samples from appropriate clinical sources arebeing tested. Negative test results derived fromspecimens received in non-commercially manufacturedviral collection and transport media, or in media andsample collection kits not yet authorized by FDA forCOVID-19 testing should be cautiously evaluated and thepatient potentially subjected to extra precautions suchas additional clinical monitoring, including collectionof an additional specimen.Methodology: Nucleic Acid Amplification Test (NAAT)includes RT-PCR or TMAAdditional information about COVID-19 can be foundat the [employer] website:www.[facility].com/Covid19. ID Date Data Source [id number] 01/15/2021 01:08:00 PM EDT [facility] Name Value Range Interpretation Code Description Data Archana rce(s) Supporting Document(s) SARS-COV-2 RNA RESP QL AGATHA+PROBE Not detected [facility] and reported by [employer]. ID Date Data Source [id number] 12/25/2020 12:30:00 PM EDT [facility] Name Value Range Interpretation Code Description Data Archana rce(s) Supporting Document(s) SARS-CoV-2 (COVID-19) RNA [Presence] in Respiratory specimen by AGATHA with probe detection Not Detected [facility] This lab was ordered by [facility] and reported by [facility]. ID Date Data Source PSA SCREENING 12/06/2020 12:00:00 AM EDT eCW1 ([facility]) Name Value Range Interpretation Code Description Data Archana rce(s) Supporting Document(s) 1.88 < 4.00 PSA SCREENING [facility] ([facility]) ID Date Data Source LIPID [id number] (CARDIAC RISK) 12/06/2020 12:00:00 AM EDT eCW1 ( [facility]) Name Value Range Interpretation Code Description Data Archana rce(s) Supporting Document(s) Cholesterol in HDL [Moles/volume] in Serum or Plasma 44 >40 HDL CHOLESTEROL eCW1 ([facility]) Cholesterol [Moles/volume] in Serum or Plasma 188 <200 CHOLESTEROL LEVEL eCW1 ([facility]) Triglyceride [Mass/volume] in Serum or Plasma by calculation 172 <150 TRIGLYCERIDES LEVEL eCW1 ([facility]) Cholesterol in LDL [Mass/volume] in Serum or Plasma by calculation 110 <100 LDL CHOLESTEROL eCW1 ([facility]) 144 NON-HDL-C eCW1 ([facility]) 4.272 <5 CHOLESTEROL RISK RATIO eCW1 ([facility]) ID Date Data Source [id number] 12/06/2020 12:00:00 AM EDT eCW1 ([facility]) Name Value Range Interpretation Code Description Data Archana rce(s) Supporting Document(s) Hemoglobin A1c/Hemoglobin.total in Blood 5.2 HEMOGLOBIN A1c eCW1 ([facility]) ID Date Data Source FREE T4 & TSH PANEL 12/06/2020 12:00:00 AM EDT eCW1 ([facility]) Name Value Range Interpretation Code Description Data Archana rce(s) Supporting Document(s) 0.722 0.358-3.740 THYROID STIMULATING HORM ONE eCW1 ([facility]) 0.97 0.76-1.46 FREE T4 eCW1 ([facility]) ID Date Data Source Comprehensive Metabolic Profile (CMP) 12/06/2020 12:00:00 AM EDT eCW1 ([facility]) Name Value Range Interpretation Code Description Data Archana rce(s) Supporting Document(s) 70 70-100 GLUCOSE, FASTING eCW1 ([facility]) 20 7-18 BLOOD UREA NITROGEN eCW1 ([facility]) 0.93 0.70-1.30 CREATININE FOR GFR eCW1 ([facility]) 138 136-145 SODIUM LEVEL eCW1 ([facility]) 5.1 3.5-5.1 POTASSIUM SERUM eCW1 ([facility]) > 60.0 >56 GLOMERULAR FILTRATION RATE eCW 1 ([facility]) 9.8 8.5-10.1 CALCIUM LEVEL eCW1 ([facility]) 105 98-107 CHLORIDE LEVEL eCW1 ([facility]) 30 21-32 CARBON DIOXIDE LEVEL eCW1 ([facility]) 27 12-78 ALT/SGPT eCW1 ([facility]) 68 45-117 ALKALINE PHOSPHATASE eCW1 ([facility]) 18 7-37 AST/SGOT eCW1 ([facility]) 0.5 0.2-1.0 BILIRUBIN,TOTAL eCW1 ([facility]) 7.5 6.4-8.2 TOTAL PROTEIN eCW1 ([facility]) 4.2 3.2-5.2 ALBUMIN eCW1 ([facility]) 1.3 ALBUMIN/GLOBULIN RATIO eCW1 ([facility]) ID Date Data Source CBC with Differential 12/06/2020 12:00:00 AM EDT eCW1 ([facility]) Name Value Range Interpretation Code Description Data Archana rce(s) Supporting Document(s) 6.4 4.0-10.0 WHITE BLOOD COUNT eCW1 ([facility]) 4.69 4.30-6.10 RED BLOOD COUNT eCW1 ([facility]) 15.4 13.5-17.5 HEMOGLOBIN eCW1 ([facility]) 44.4 42.0-52.0 HEMATOCRIT eCW1 ([facility]) 34.7 32.0-36.5 MEAN CORPUSCULAR HGB CONC eCW1 ([facility]) 94.7 80.0-96.0 MEAN CORPUSCULAR VOLUME e CW1 ([facility]) 32.8 27.0-33.0 MEAN CORPUSCULAR HEMOGLOB IN eCW1 ([facility]) 248 150-450 PLATELET COUNT, AUTOMATED eCW1 ([facility]) 11.5 11.5-14.5 RED CELL DISTRIBUTION WID TH eCW1 ([facility]) 10.3 2.0-8.0 MONO % eCW1 ([facility]) 55.8 36.0-66.0 NEUTROPHILS % eCW1 ([facility]) 29.9 24.0-44.0 LYMPH % eCW1 ([facility]) 3.6 1.5-8.5 NEUTROPHILS # eCW1 ([facility]) 0.9 0.0-1.0 BASO % eCW1 ([facility]) 2.8 0.0-3.0 EOS % eCW1 ([facility]) 0.2 0.0-0.5 EOS # eCW1 ([facility]) 0.7 0.0-0.8 MONO # eCW1 ([facility]) 0.1 0.0-0.2 BASO # eCW1 ([facility]) 1.9 1.5-5.0 LYMPH # eCW1 ([facility]) ID Date Data Source [id number] 09/09/2020 09:45:00 PM EDT [facility] Name Value Range Interpretation Code Description Data Archana rce(s) Supporting Document(s) COVID-19 RT-PCR NASAL SWAB Not Detected Not Detected [facility] A not detected (negative) test result fo r this test means that SARS-CoV-2 RNA was not present in the specimen above the limit ofdetection. Laboratory test results should always be considered in thecontext of clinical observations and epidemiological data in making afinal diagnosis and patient management decisions. Results will bereported to government agencies as required.This test has received Emergency Use Authorization (EUA). We will continue to follow federal and state requirements for COVID-19 reporting. This test has been authorized only for the detection of RNAfrom SARS-CoV-2 virus and diagnosis of SARS-CoV-2 virus infection, notfor any other viruses or pathogens. This test is only authorized for the duration of the declaration that circumstances exist justifying the authorization of the emergency use of in vitro diagnostic tests for detection of SARS-CoV-2 virus and/or diagnosis of SARS-CoV-2 virusinfection under section 564(b)(1) of the Act, 21 U.S.C. section 360bbb-3(b)(1), unless the authorization is terminated or revoked sooner. We will continue to follow federal and state requirements for both notification of results and any confirmatory testing that is required by another agency. This test was developed and its performance characteristics determined by [employer] and verified at [facility]. It has not been cleared or approved by the U.S. Food and Drug Administration for diagnostic use. This test has been authorized by FDA under an EUA for use by authorized laboratories. Results should be used in conjunction with clinical findings, and should not form the sole basis for a diagnosis or treatment decision. Methods: SARS-CoV-2 Multiplex RT-PCR Assay ID Date Data Source [id number] 09/08/2020 03:30:00 PM EDT [facility] Name Value Range Interpretation Code Description Data Archana rce(s) Supporting Document(s) SARS-CoV-2 (COVID-19) N gene [Presence] in Respiratory specimen by AGATHA with probe detection NEGATIVE [facility] This lab was ordered by Shanique Parra and reported by [employer]. ID Date Data Source [id number] 09/08/2020 12:00:00 AM EDT [facility] Name Value Range Interpretation Code Description Data Archana rce(s) Supporting Document(s) Carestart Rapid COVID Antigen Test Negative [facility] This lab was reported by Shanique [facility]. Procedure Social History Code Duration Value Status Description Data Source(s ) Smoking 03/17/2021 12:00:00 AM EDT Never Smoker completed Never S moker eCW1 ([facility]) Smoking 12/06/2020 12:00:00 AM EDT Never Smoker completed Never S moker eCW1 ([facility]) Smoking 12/06/2020 12:00:00 AM EDT Never Smoker completed Never S moker eCW1 ([facility]) Smoking 12/06/2020 12:00:00 AM EDT Never Smoker completed Never S moker eCW1 ([facility]) Smoking 12/06/2020 12:00:00 AM EDT Never Smoker completed Never S moker eCW1 ([facility]) Smoking 12/06/2020 12:00:00 AM EDT Never Smoker completed Never S moker eCW1 ([facility]) Vital Signs ID Date Data Source UNK Name Value Range Interpretation Code Description Data Source(s) Body weight 184.12 [lb_av] 184.12 [lb_av] eCW1 ([facility]) Body weight 83.52 kg 83.52 kg eCW1 ([facility]) Body height 72 [in_i] 72 [in_i] eCW1 ([facility]) Body mass index (BMI) [Ratio] 24.97 kg/m2 24.97 kg/m2 eCW1 ([facility]) Heart rate 82 /min 82 /min eCW1 ([facility]) Respiratory rate 18 /min 18 /min eCW1 ([facility] Body temperature 97.8 [degF] 97.8 [degF] eCW1 ( [facility]) Systolic blood pressure 130 mm[Hg] 130 mm[Hg] e CW1 ([facility]) Diastolic blood pressure 70 mm[Hg] 70 mm[Hg] eCW1 ([facility]) Body weight 187.00 [lb_av] 187.00 [lb_av] MEDEN T ([facility], ) Body mass index (BMI) [Ratio] 25.4 kg/m2 25.4 k g/[facility] Taberg body weight 178 [lb_av] 178 [lb_av] MEDEN T ([facility], ) Body surface area Derived from formula 2.07 m2 2.07 m2 [facility] ([facility], ) Systolic blood pressure 142 mm[Hg] 142 mm[Hg] [facility] ([facility], ) Diastolic blood pressure 88 mm[Hg] 88 mm[Hg] [facility] ([facility], ) Body height 72 [in_i] 72 [in_i] [facility] ([facility]) 6'0" Body weight 84.823 kg 84.823 kg [facility] ([facility], ) Body weight 185 [lb_av] 185 [lb_av] eCW1 ([facility]) Body height 72 [in_i] 72 [in_i] eCW1 ([facility]) Body mass index (BMI) [Ratio] 25.09 kg/m2 25.09 kg/m2 eCW1 ([facility]) Heart rate 78 /min 78 /min eCW1 ([facility]) Respiratory rate 18 /min 18 /min eCW1 ([facility]) Body temperature 97.8 [degF] 97.8 [degF] eCW1 ( [facility]) Systolic blood pressure 122 mm[Hg] 122 mm[Hg] e CW1 ([facility]) Diastolic blood pressure 80 mm[Hg] 80 mm[Hg] eCW1 ([facility]) Patient Treatment Plan of Care Planned Activity Planned Date Details Description Data Source (s) Amoxicillin 875 MG / Clavulanate 125 MG Oral Tablet 03/17/20 12:00:00 AM EDT eCW1 ([facility]) montelukast 10 MG Oral Tablet [Singulair] 03/07/2021 12:00:00 AM ED T eCW1 ([facility]) montelukast 10 MG Oral Tablet [Singulair] 03/07/2021 12:00:00 AM ED T eCW1 ([facility]) montelukast 10 MG Oral Tablet [Singulair] 03/07/2021 12:00:00 AM ED T eCW1 ([facility]) Fexofenadine hydrochloride 180 MG Oral Tablet 12/06/2020 12:00:00 A M EDT eCW1 ([facility]) Fexofenadine hydrochloride 180 MG Oral Tablet 12/06/2020 12:00:00 A M EDT eCW1 ([facility]) Fexofenadine hydrochloride 180 MG Oral Tablet 12/06/2020 12:00:00 A M EDT eCW1 ([facility]) Fexofenadine hydrochloride 180 MG Oral Tablet 12/06/2020 12:00:00 A M EDT eCW1 ([facility]) Fexofenadine hydrochloride 180 MG Oral Tablet 12/06/2020 12:00:00 A M EDT eCW1 ([facility])
[2021-05-22] MEDS ORDERED: LIDOCAINE 2% 100MG/5ML SDV (FOR ANES.) As Ordered ONE (09:13)
[2021-05-22] MEDS ORDERED: propofoL 200 MG/20 ML VIAL As Ordered ONE (09:13)
--- NOTE | 2021-05-22 10:23 | ROOR ---
Patient Name: Kortney Bullock Procedure Date: 05/22/2021 10:00 AM Date of : 1960 Age: 61 Room: [facility] Gender: Male Note Status: Finalized Procedure: Colonoscopy Indications: Screening for colorectal malignant neoplasm Providers: Umberto Bridges MD Referring MD: Margarita Pappas Requesting Provider: Medicines: Monitored Anesthesia Care Complications: No immediate complications. Procedure: Pre-Anesthesia Assessment: - The heart rate, respiratory rate, oxygen saturations, blood pressure, adequacy of pulmonary ventilation, and response to care were monitored throughout the procedure. The Colonoscope was introduced through the anus and advanced to the terminal ileum, with identification of the appendiceal orifice and IC valve. The colonoscopy was performed without difficulty. The patient tolerated the procedure well. The quality of the bowel preparation was good. Findings: The perianal and digital rectal examinations were normal. Two sessile polyps were found in the descending colon and ascending colon. The polyps were diminutive in size. These polyps were removed with a cold snare. Resection and retrieval were complete. Mild sigmoid diverticulosis and small internal hemorrhoids. The exam was otherwise without abnormality on direct and retroflexion views. Impression: - Two diminutive polyps in the descending colon and in the ascending colon, removed with a cold snare. Resected and retrieved. - Mild sigmoid diverticulosis and small internal hemorrhoids. - The examination was otherwise normal on direct and retroflexion views. Recommendation: - Repeat colonoscopy in 5 years for surveillance. Procedure Code(s): --- Professional --- 87992, Colonoscopy, flexible; with removal of tumor(s), polyp(s), or other lesion(s) by snare technique Diagnosis Code(s): --- Professional --- K63.5, Polyp of colon Z12.11, Encounter for screening for malignant neoplasm of colon CPT copyright 2019 [employer]. All rights reserved. The codes documented in this report are preliminary and upon house repairer review may be revised to meet current compliance requirements. Umberto Bridges MD Umberto Bridges MD 05/22/2021 10:23:26 AM Electronically signed by Umberto Bridges MD Number of Addenda: 0 Note Initiated On: 05/22/2021 10:00 AM Estimated Blood Loss: Estimated blood loss: none.
[2021-05-22 10:40] VITALS: BP 131/88
== END 2021-05-22 10:50 | disposition home or self-care (01) ==
LOC: M OPP 08:48
PROVIDERS: ATTEND Internal Medicine Gastroenterology
DX: Z12.11 Encounter for screening for malignant neoplasm of colon (principal); D12.2 Benign neoplasm of ascending colon; D12.4 Benign neoplasm of descending colon; K57.30 Diverticulosis of large intestine without perforation or abscess without bleeding; K64.8 Other hemorrhoids; Z79.899 Other long term (current) drug therapy; Z87.891 Personal history of nicotine dependence

== ENCOUNTER → 2021-12-01 | Outpatient (CLI) | payer OTHER ==
[~2021-12-01] MED LIST changes: -MONT10TA10 PO; +MONT10TA97 PO; -NS 1,000 ML IV ONE
[2021-12-01 17:21] LABS: BASO % 0.6 % (0.0-1.0); EOS # 0.2 10^3/uL (0.0-0.5); EOS % 2.4 % (0.0-3.0); HEMATOCRIT 42.4 % (42.0-52.0); HEMOGLOBIN 14.9 g/dl (13.5-17.5); LYMPH # 1.6 10^3/uL (1.5-5.0); LYMPH % 24.6 % (24.0-44.0); MEAN CORPUSCULAR HEMOGLOBIN 33.9 pg (27.0-33.0); MEAN CORPUSCULAR HGB CONC 35.1 g/dl (32.0-36.5); MEAN CORPUSCULAR VOLUME 96.4 fl (80.0-96.0); MONO # 0.5 10^3/uL (0.0-0.8); MONO % 8.1 % (2.0-8.0); NEUTROPHILS # 4.2 10^3/uL (1.5-8.5); PLATELET COUNT, AUTOMATED 244 10^3/uL (150-450); WHITE BLOOD COUNT 6.6 10^3/uL (4.0-10.0)
[2021-12-01 17:38] LABS: ALT/SGPT 27 U/L (12-78); BILIRUBIN,TOTAL 0.4 MG/DL (0.2-1.0); BLOOD UREA NITROGEN 15 MG/DL (7-18); CALCIUM LEVEL 9.6 MG/DL (8.5-10.1); CARBON DIOXIDE LEVEL 28 MEQ/L (21-32); CHLORIDE LEVEL 104 MEQ/L (98-107); CHOLESTEROL LEVEL 190 MG/DL (<200); CHOLESTEROL RISK RATIO 3.653 (<5); CREATININE FOR GFR 1.06 MG/DL (0.70-1.30); FREE T4 0.88 NG/DL (0.76-1.46); GLOMERULAR FILTRATION RATE > 60.0 (>56); GLUCOSE, FASTING 117 MG/DL (70-100); HDL CHOLESTEROL 52 MG/DL (>40); LDL CHOLESTEROL 91 MG/DL (<100); NON-HDL-C 138 MG/DL; POTASSIUM SERUM 3.9 MEQ/L (3.5-5.1); SODIUM LEVEL 139 MEQ/L (136-145); THYROID STIMULATING HORMONE 0.944 uIU/ML (0.358-3.740); TOTAL PROTEIN 7.4 GM/DL (6.4-8.2); TRIGLYCERIDES LEVEL 234 MG/DL (<150)
== END ==
LOC: M PLALAB 15:04
PROVIDERS: ATTEND Nurse Practitioner Family
DX: E03.9 Hypothyroidism, unspecified (principal); I10 Essential (primary) hypertension; Z12.5 Encounter for screening for malignant neoplasm of prostate; E78.5 Hyperlipidemia, unspecified
CPT/HCPCS: 36415; 80053; 80061; 84439; 84443; 85025; G0103